=== PATIENT | male | born 1950 | race Hispanic/Latino ===

== ENCOUNTER 2022-01-13 15:52 | Emergency (ER) | payer OTHER ==
[~2022-01-13] VITALS: Ht 175.3 cm; Wt 80.7 kg
[2022-01-13] MEDS ORDERED: KETOROLAC 60 MG VIAL (30MG/ML) IM ONE (17:00)
[2022-01-13] MEDS ORDERED: FIORIT PO (17:04)
[2022-01-13 17:49] VITALS: BP 138/60
== END 2022-01-13 17:53 | disposition home or self-care (01) ==
LOC: EDH 15:52
DX: G43.909 Migraine, unspecified, not intractable, without status migrainosus (principal); Z79.1 Long term (current) use of non-steroidal anti-inflammatories (NSAID)
CPT/HCPCS: 99284; 70450; 96372; J1885

== ENCOUNTER 2022-05-19 13:01 | Emergency (ER) | payer OTHER ==
[~2022-05-19] VITALS: Ht 175.3 cm; Wt 81.6 kg
[~2022-05-19 13:01] MED LIST: FIORIT PO
[2022-05-19 13:23] LABS: BASOPHILS % (AUTO) 0.7 % (0.0-5.0); EOSINOPHILS % (AUTO) 1.1 % (0.0-8.0); HEMATOCRIT 44.7 % (42-54); LYMPHOCYTES % (AUTO) 34.3 % (21.0-51.0); MEAN CORPUSCULAR HEMOGLOBIN 31.5 pg (27.0-33.0); MEAN CORPUSCULAR HGB CONC 34.9 g/dL (32.0-36.0); MEAN CORPUSCULAR VOLUME 90.3 fL (79-99); MONOCYTES % (AUTO) 7.2 % (3.0-13.0); NEUTROPHILS % (AUTO) 56.3 % (40.0-77.0); PLATELET COUNT (AUTO) 220 K/uL (130-400); RED BLOOD CELL COUNT(AUTO) 4.95 MIL/uL (4.50-6.20); RED CELL DISTRIBUTION WIDTH 12.6 % (11.0-15.5); WHITE BLOOD COUNT (AUTO) 5.7 K/uL (4.8-10.8)
[2022-05-19 13:32] LABS: CREATININE 0.9 mg/dL (0.5-1.5); POTASSIUM 3.5 mmol/L (3.5-5.1)
[2022-05-19 13:37] LABS: ALBUMIN 3.8 g/dL (3.5-5.0); TOTAL PROTEIN, SERUM 7.4 g/dL (6.0-8.3)
[2022-05-19 14:09] LABS: B-TYPE NATRIURETIC PEPTIDE 84 pg/mL (0-100)
[2022-05-19] MEDS ORDERED: KETOROLAC 15MG/ML VIAL (15MG/ML) ONE (14:13)
[2022-05-19] MEDS ORDERED: DEXAMETHASONE SOD PHOSPHATE 10MG/ML 1ML VIAL ONE (14:14)
[2022-05-19] MEDS ORDERED: MORPHINE 2 MG SYG ONE (14:14)
[2022-05-19 14:28] VITALS: BP 149/70
[2022-05-19] MEDS ORDERED: DEXAMETHASONE SOD PHOSPHATE 4 MG/ML 1ML VIAL IVP ONE (14:30)
[2022-05-19] MEDS ORDERED: KETOROLAC 15MG/ML VIAL (15MG/ML) IV ONE (14:30)
[2022-05-19] MEDS ORDERED: MORPHINE 2 MG SYG IVP ONE (14:30)
[2022-05-19] MEDS ORDERED: ACET1TAB97 PO (15:56)
[2022-05-19] MEDS ORDERED: METH4TAB3 PO (15:56)
== END 2022-05-19 16:13 | disposition home or self-care (01) ==
LOC: EDH 13:01
DX: G58.9 Mononeuropathy, unspecified (principal); G43.909 Migraine, unspecified, not intractable, without status migrainosus; Z79.52 Long term (current) use of systemic steroids; Z79.1 Long term (current) use of non-steroidal anti-inflammatories (NSAID)
CPT/HCPCS: 99285; 96374; 71045; 96375; 84484; 80053; 83880; 85025; 36415; 93005; J1100; J1885

== ENCOUNTER → 2025-02-07 | Outpatient (CLI) | payer OTHER ==
[~2025-02-07] MED LIST changes: +ACET1TAB97 PO; +METH4TAB3 PO
[2025-02-07 21:29] VITALS: PULSE 50; RESP 12
[2025-02-07 22:00] VITALS: PULSE 50; RESP 14
[2025-02-07 22:30] VITALS: PULSE 58; RESP 14
[2025-02-07 23:01] VITALS: PULSE 45; RESP 14
[2025-02-07 23:30] VITALS: PULSE 59; RESP 14
[2025-02-08] VITALS (11 sets, daily range): PULSE 52–61; RESP 12–18
== END | disposition home or self-care (01) ==
LOC: SLP 20:20
PROVIDERS: ATTEND Internal Medicine
DX: G47.33 Obstructive sleep apnea (adult) (pediatric) (principal)
CPT/HCPCS: 95810